=== PATIENT | male | born 1995 | race American Indian/Alaskan Native ===

== ENCOUNTER 2016-12-09 15:04 | Emergency (ER) | payer OTHER ==
[2016-12-09 19:44] VITALS: BP 153/79
[2016-12-09] MEDS ORDERED: MOTRIN PO ONE (19:50)
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
--- NOTE | 2016-12-09 20:54 | XRay Report ---
FINAL REPORT EXAM: XR SPINE THORACIC 3V HISTORY: tenderness MID back pain TECHNIQUE: 3 views thoracic spine PRIORS: None. FINDINGS: The vertebral bodies demonstrate normal height and alignment. The disk spaces are within normal limits. The posterior elements appear intact. Perivertebral soft tissues are unremarkable. IMPRESSION: Negative thoracic spine series
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
== END 2016-12-09 22:07 | disposition home or self-care (01) ==
LOC: ED 15:04
DX: S16.1XXA Strain of muscle, fascia and tendon at neck level, initial encounter (principal); S13.4XXA Sprain of ligaments of cervical spine, initial encounter; V89.2XXA Person injured in unspecified motor-vehicle accident, traffic, initial encounter; Y93.89 Activity, other specified; Y99.9 Unspecified external cause status; Y92.410 Unspecified street and highway as the place of occurrence of the external cause
CPT/HCPCS: 72040; 72072